=== PATIENT | male | born 1955 | race Caucasian/White ===

== ENCOUNTER 2017-01-29 20:04 | Emergency (ER) | payer OTHER ==
[2017-01-29 21:24] LABS: CALCIUM 8.2 mg/dL (8.5-10.1); CARBON DIOXIDE 22.8 mmol/L (21-32); CHLORIDE SERUM 93 mmol/L (98-107); CREATININE SERUM 1.2 mg/dL (0.7-1.3); GFR1 > 60 mL/min; GLUCOSE SERUM 245 mg/dL (74-106); POTASSIUM SERUM 3.2 mmol/L (3.5-5.1); SODIUM SERUM 126 mmol/L (136-145)
[2017-01-29 21:29] LABS: ALKALINE PHOSPHATASE 82 U/L (46-116); ALT/SGPT 12 U/L (16-63); AST/SGOT 18 U/L (15-37); LIPASE 64 IU/L (73-393); TOTAL PROTEIN, SERUM 6.5 g/dL (6.4-8.2)
[2017-01-29 21:30] LABS: ALBUMIN 1.8 g/dL (3.4-5.0); AMYLASE 24 U/L (25-115)
[2017-01-29 21:32] LABS: RED CELL DISTRIBUTION WIDTH 17.5 % (11.5-14.5)
[2017-01-29 21:33] LABS: PLATELET COUNT 994 x10^3mcL (130-400)
[2017-01-29 21:40] LABS: BAND NEUTROPHIL 23 % (0-10); BASOPHIL 0 % (0-2); METAMYELOCTE 3 % (0-2); MONOCYTE 2 % (0-7); SEGMENTED NEUTROPHILS 56 % (37-75)
[2017-01-29 21:42] LABS: PATH REVIEW for HEMA YES; PLATELET MORPHOLOGY PLATELETS INCREASED
[2017-01-30 02:35] VITALS: BP 108/58
== END 2017-01-30 02:35 | disposition short-term general hospital (02) ==
LOC: ED 20:04
PROVIDERS: Emergency Medicine
DX: K25.5 Chronic or unspecified gastric ulcer with perforation (principal)
CPT/HCPCS: 83880; 85060; C9113; J1170; J2405; J2543; J2550; J7030; J7040